=== PATIENT | male | born 1985 | race Caucasian/White ===

== ENCOUNTER 2017-03-06 12:14 | Inpatient (IN) | payer MEDICAID, OTHER ==
[~2017-03-06] VITALS: Ht 172.7 cm; Wt 61.7 kg
[2017-03-06 13:14] LABS: MEAN CORPUSCULAR HEMOGLOBIN 31.8 pg (27.0-33.0); MEAN CORPUSCULAR HGB CONC 35.6 g/dl (32.0-36.5); MEAN CORPUSCULAR VOLUME 89.5 fl (80.0-96.0); WHITE BLOOD COUNT 6.1 K/mm3 (4.0-10.0)
[2017-03-06 13:26] LABS: METHADONE URINE NEGATIVE (NEGATIVE)
[2017-03-06 13:38] LABS: ALBUMIN 4.4 GM/DL (3.2-5.2); ALBUMIN/GLOBULIN RATIO 1.16 (1.00-1.93); ALKALINE PHOSPHATASE 71 U/L (45-117); ALT/SGPT 28 U/L (12-78); ANION GAP 7 MEQ/L (8-16); AST/SGOT 20 U/L (15-37); BILIRUBIN,DIRECT 0.3 MG/DL (0.0-0.2); BILIRUBIN,TOTAL 0.9 MG/DL (0.2-1.0); BLOOD UREA NITROGEN 20 MG/DL (7-18); CALCIUM LEVEL 9.2 MG/DL (8.5-10.1); CARBON DIOXIDE LEVEL 27 MEQ/L (21-32); CHLORIDE LEVEL 105 MEQ/L (98-107); GLOMERULAR FILTRATION RATE > 60.0 (>60); GLUCOSE, FASTING 96 MG/DL (70-105); POTASSIUM SERUM 3.6 MEQ/L (3.5-5.1); SODIUM LEVEL 139 MEQ/L (136-145); TOTAL PROTEIN 8.2 GM/DL (6.4-8.2)
[2017-03-06] MEDS ORDERED: IBUPOTC PO (17:10)
[2017-03-06] MEDS ORDERED: MAGN500C PO (17:10)
[2017-03-06] MEDS ORDERED: ALLE180T33 PO (17:10)
[2017-03-06 17:48] VITALS: BP 131/95
[2017-03-06] MEDS ORDERED: hydrOXYzine 50 MG TAB PO PRN (19:15)
[2017-03-06] MEDS ORDERED: MAALOX 30 ML SUSP *UDC PO PRN (19:15)
[2017-03-06] MEDS ORDERED: MOM 30ML SUSPENSION UDC PO PRN (19:15)
[2017-03-06] MEDS ORDERED: LORazepam 2 MG TAB PO PRN (19:15)
[2017-03-06] MEDS: THIAMINE 100 MG TAB PO SCH (20:32)
[2017-03-06] MEDS: DIVALPROEX 250 MG TAB PO SCH (20:32)
[2017-03-06] MEDS: risperiDONE 1 MG TAB PO SCH (20:32)
[2017-03-06] MEDS: MULTIVITAMINS/MINERALS THERAP 1 TAB PO SCH (20:33)
[2017-03-06] MEDS: FOLIC ACID 1 MG TAB PO SCH (20:33)
[2017-03-06] MEDS: ACETAMINOPHEN TAB 650MG DOSE (2X325MG) PO PRN (21:54)
[2017-03-07] MEDS ORDERED: QUEtiapine FUMARATE 100 MG TAB PO ONE (01:15)
[2017-03-07 06:44] VITALS: BP 136/87
[2017-03-07 08:30] VITALS: BP 133/79
[2017-03-07] MEDS: risperiDONE 1 MG TAB PO SCH ×2 (08:32→20:21)
[2017-03-07] MEDS: THIAMINE 100 MG TAB PO SCH ×2 (08:32→20:21)
[2017-03-07] MEDS: DIVALPROEX 250 MG TAB PO SCH ×2 (08:33→20:21)
[2017-03-07] MEDS: FOLIC ACID 1 MG TAB PO SCH (08:33)
[2017-03-07] MEDS: MULTIVITAMINS/MINERALS THERAP 1 TAB PO SCH (08:33)
[2017-03-07] MEDS: MAGNESIUM OXIDE 400 MG TAB (MAG-OX) PO SCH (08:33)
[2017-03-07] MEDS ORDERED: FEXOFENADINE 60 MG TAB PO PRN (09:00)
--- NOTE | 2017-03-07 10:30 | HPEPDOC ---
Medical History and Physical Date of Admission Mar 06, 2017 at 16:50 History and Physical PCP: None ATTENDING: Dr. Lamine Soliz HPI: 31yoM admitted to [facility] for bipolar disorder, being medically examined today. No acute medical complaints today. Denies any fevers, chills, weakness, fatigue, OCHOA, CP, SOB, cough, palpitations, abdominal pain, N/V/D or changes in bowel or bladder habits. PMHx: Bipolar disorder depression anxiety Allergic rhinitis Substance use PSHX: Left ulnar nerve transposition SOCHX: Resides in: [facility] resident, from [place]. Marital Status: Single Kids: None Employment: Employed Tobacco use: Occasional ETOH: States drinking " a lot " since 08/05 Illicit Drugs: Marijuana daily IV Drug Use: Denies Tattoos done unprofessionally: Denies FAMHX: Mother: Alive, hypertension Father: , complications of MVA Siblings: One sister Alive, bipolar disorder, SI Children: None Unexpected deaths due to medical reasons: Paternal uncle suicide, depression. ROS: As noted in HPI, otherwise 11pt ROS of systems reviewed and unremarkable. PE: GEN: 31 yo M, appears stated age. Well-nourished, well developed. No acute distress. Alert and oriented x 3. Pleasant, interactive. HEENT: Normocephalic, atraumatic. Pupils are equal, round, and reactive to light. Extraocular movements are intact. No nystagmus appreciated. Sclera are nonicteric. Conjunctiva without injection. Nose midline. Nasal turbinates without bogginess. EACs both patent BL. TMs both visualized and rubin with good cone of light, no bulging or erythema. No facial asymmetry. Moist mucous membranes. Dentition fair. Pharynx pink and moist, no cobblestoning. Neck supple , trachea midline. No lymphadenopathy or thyromegaly appreciated. CHEST: Regular rate and rhythm, +S1, +S2 LUNGS: Clear to auscultation bilaterally. No wheezes, rales, or rhonchi. Breathing appears symmetric and easy. Patient is speaking in full sentences. No accessory muscle use. ABD: Round, soft, non-tender, non-distended. +Bowel sounds throughout. No rebound or guarding. No costovertebral angle tenderness. EXT: Pulses 2+ bilaterally dorsalis pedis and radial. No lower extremity edema appreciated. SKIN: Bylas, dry, warm. Capillary refill <2sec. No rashes. NEURO: Alert and oriented x 3. Cranial nerves III-XII are intact. No focal deficits appreciated. EKG: Pending. A&P: 31yoM admitted to [facility] for bipolar disorder 1. Psych. Plan per Psychiatry. Obtain baseline EKG to assure the safety of psychiatric medications as they can prolong the QT interval. 2. Nicotine dependence. Patch available. 3. Allergic rhinitis. Continue Lizbet 180 mg daily. 4. Follow up. No Primary Care Provider. Will attempt to establish PCP on discharge. 5. Substance use. Per psychiatry. Continue with MVI, Thiamine, and Folic Acid supplementation. 6. Magnesium supplementation. Patient takes magnesium oxide 500 mg daily. Check magnesium level. 7. Staff member Jeremy present throughout exam. Vital Signs Vital Signs Date Time Temp Pulse Resp B/P (MAP) Pulse Ox O2 Delivery O2 Flow Rate FiO2 03/07/17 08:30 79 133/79 03/07/17 06:44 97.7 18 03/06/17 17:48 99 Room Air Laboratory Data Labs 24H Laboratory Tests 2 03/06/17 12:54: Anion Gap 7L, Glomerular Filtration Rate > 60.0, Calcium Level 9.2, Aspartate Amino Transf (AST/SGOT) 20, Alanine Aminotransferase (ALT/SGPT) 28, Alkaline Phosphatase 71, Total Bilirubin 0.9, Direct Bilirubin 0.3H, Total Protein 8.2, Albumin 4.4, Albumin/Globulin Ratio 1.16, Thyroid Stimulating Hormone (TSH) 0.678, Salicylates Level < 1.7L, Urine Amphetamines Screen NEGATIVE, Urine Benzodiazepines Screen NEGATIVE, Urine Opiates Screen NEGATIVE, Urine Methadone Screen NEGATIVE, Acetaminophen Level < 2.0L, Urine Barbiturates Screen NEGATIVE , Urine Phencyclidine Screen NEGATIVE, Urine Cocaine Metabolite Screen NEGATIVE , Urine Cannabinoids Screen POSITIVEH, Ethyl Alcohol Level 0.004 CBC/BMP Laboratory Tests 03/06/17 12:54 Red Blood Count 5.21, Mean Corpuscular Volume 89.5, Mean Corpuscular Hemoglobin 31.8, Mean Corpuscular Hemoglobin Concent 35.6, Red Cell Distribution Width 12.0 Home Medications Scheduled Magnesium Oxide (Magnesium) 500 Mg Cap, 500 MG PO DAILY Scheduled PRN Fexofenadine Hydrochloride (Lizbet Allergy) 180 Mg Tab, 180 MG PO DAILY PRN for Allergies Ibuprofen (Ibuprofen) 200 Mg Tab, 200 MG PO Q6H PRN for PAIN Allergies Coded Allergies: Dust Mite Extract (Verified Allergy, Unknown, 03/06/17) Lelo Toney Mar 07, 2017 10:30
[2017-03-07 12:05] LABS: MAGNESIUM LEVEL 2.4 MG/DL (1.8-2.4)
--- NOTE | 2017-03-07 14:21 | MHHPE ---
DATE OF ADMISSION: 03/06/2017 CURRENT MEDICATIONS: - Depakote 250 mg twice a day - Risperdal 1 mg twice a day CHIEF COMPLAINT: Mood swings. HISTORY OF PRESENT ILLNESS: This is a 31-year-old single white male living with his mother. Patient has a longstanding history of bipolar disorder. He has manic episodes lasting for months at a time. He has been manic since July he states. He has longstanding depressive episodes lasting up to a year at a time. His last manic episode was triggered he thinks by witnessing the of his close friends father in an avalanche in [place] back in July. He has been manic every since and drinking alcohol heavily. The patient likes to drink whiskey. He does get blackouts but denies delirium tremens or seizures. He also smokes marijuana. The patient and his girlfriend just moved from [place]. They broke up on the way. He was arrested while in [place] and stayed overnight in a local [facility]. He was then released and continued on his way here to the [facility]. His girlfriend went to her hometown in [place]. The patient states that he has a high level of energy. His appetite is poor. He has lost 16 pounds over the past six months. His sleep patterns are erratic. He does get racing thoughts. No recent depressive symptoms, but he is afraid of developing a major depressive episode. The patient was seen in the ED yesterday and was admitted on the current psychotropics. He states he has been on this combination before in the past briefly by a Dr. Clayton in [place]. PAST PSYCHIATRIC HISTORY: The patient did see Dr. Clayton briefly 2-3 years ago. He reports that the Risperdal was well tolerated. He does not like to take medications that require blood tests; however, his sister is on lithium. Patient was given Klonopin in the past but had a bad reaction to that. He has never had a psychiatric hospitalization before, aside from a one day admission to a facility in [place] about 4 years ago when he was in a depressed state. MEDICAL HISTORY: Patient healthy. 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 SURGICAL HISTORY: Surgery on his left elbow from a skateboard accident. ALLERGIES: Negative. LEGAL ISSUES: None aside from the arrest in [place]. CHEMICAL DEPENDENCY: Positive for alcohol and cannabis. He has never been in a rehab treatment facility. SOCIAL HISTORY: Patient was born in [place]. When his father , he and the family moved to the [place] area where his mother has family. He graduated high school in [place]. He then got a college degree in [employer] in [place] and has lived there for the past 10-11 years. 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 His sister has bipolar disorder and is on lithium and Seroquel. FAMILY HISTORY: Strong family history of bipolar disorder on his fathers side. His uncle committed suicide. His grandmother was treated with ECT. There is a history of alcoholism on his mothers side. MENTAL STATUS EXAMINATION: Patient is alert and cooperative. Speech is quite rapid and pressured. He talks over me constantly. Speech is rambling, loose and tangential frequently. Patient appears manic. He is not depressed. He is not suicidal. He is not homicidal. Insight and judgment are fair. He denies psychotic symptoms. He is not paranoid. He denies auditory hallucinations or thought disorder. No signs of impulsivity or dangerousness. Memory functions appear intact. ASSESSMENT: Patient appears to have classical bipolar symptoms as well as alcohol and cannabis use disorder. DIAGNOSIS: Bipolar disorder, manic. Alcohol use disorder. Cannabis use disorder. PLAN: Continue Risperdal 1 mg twice a day, Depakote 250 mg twice a day, dose will be increased as tolerated. 9.39 confirmed. Staff to reach out to family.
[2017-03-07] MEDS: ACETAMINOPHEN TAB 650MG DOSE (2X325MG) PO PRN (14:42)
[2017-03-07 18:00] VITALS: BP 130/80
[2017-03-07 20:22] VITALS: BP 130/80
--- NOTE | 2017-03-07 20:44 | ECGEPIP ---
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 Somewhat abbreviated OH interval. Incomplete RBBB. Not definite outside normal limits for age. Electronically Signed On 03-07-2017 20:44:23 EDT by Edgardo Block
[2017-03-07] MEDS: traZODone 50 MG TAB PO PRN (21:37)
[2017-03-08 06:40] VITALS: BP 144/75
[2017-03-08 07:19] LABS: ANION GAP 8 MEQ/L (8-16); BLOOD UREA NITROGEN 16 MG/DL (7-18); CALCIUM LEVEL 9.4 MG/DL (8.5-10.1); CARBON DIOXIDE LEVEL 27 MEQ/L (21-32); CHLORIDE LEVEL 105 MEQ/L (98-107); CREATININE FOR GFR 1.05 MG/DL (0.70-1.30); GLOMERULAR FILTRATION RATE > 60.0 (>60); GLUCOSE, FASTING 81 MG/DL (70-105); MAGNESIUM LEVEL 2.3 MG/DL (1.8-2.4); POTASSIUM SERUM 4.4 MEQ/L (3.5-5.1); SODIUM LEVEL 140 MEQ/L (136-145)
[2017-03-08] MEDS: risperiDONE 1 MG TAB PO SCH ×2 (08:26→20:54)
[2017-03-08] MEDS: THIAMINE 100 MG TAB PO SCH ×2 (08:26→20:54)
[2017-03-08] MEDS: MAGNESIUM OXIDE 400 MG TAB (MAG-OX) PO SCH (08:26)
[2017-03-08] MEDS: FOLIC ACID 1 MG TAB PO SCH (08:26)
[2017-03-08] MEDS: MULTIVITAMINS/MINERALS THERAP 1 TAB PO SCH (08:26)
[2017-03-08] MEDS: DIVALPROEX 250 MG TAB PO SCH (08:26)
[2017-03-08 12:50] VITALS: BP 144/75
[2017-03-08] MEDS: ACETAMINOPHEN TAB 650MG DOSE (2X325MG) PO PRN (13:23)
--- NOTE | 2017-03-08 14:00 | IPN ---
DATE: 03/08/2017 Vital signs: Temperature 98.3, pulse 61, respirations 18, blood pressure 144/75. CURRENT MEDICATION: - Depakote 250 mg twice daily - Risperdal 1 mg twice daily - Seroquel 50 mg at bedtime as needed - trazodone 50 mg at bedtime as needed HISTORY OF PRESENT ILLNESS: Patient states his appetite is good. He slept well last night. The trazodone was helpful. Manic symptoms are better. Racing thoughts less prominent. He is less anxious. No craving for the alcohol. No current depression. We discussed switching his Depakote to bedtime dosage to minimize side effects. Patient encouraged to be involved with the hospital milieu. MENTAL STATUS EXAMINATION: Patient is alert, oriented and cooperative. Speech is still rapid and pressured with signs of hypomania. Speech is still rambling and pressured. He is not depressed. He is not suicidal. Not homicidal. Denies hearing voices. No thought disorder noted. Memory functions appear fine. No signs of impulsivity. DIAGNOSIS: Bipolar disorder, manic. Alcohol use disorder. Cannabis use disorder. PLAN: No change in Risperdal. Depakote switched to 500 mg at bedtime and will be increased as tolerated. Involved in hospital milieu.
[2017-03-08 17:08] VITALS: BP 144/75
[2017-03-08 18:20] VITALS: BP 128/71
[2017-03-08] MEDS: DIVALPROEX 500 MG TAB PO SCH (20:54)
[2017-03-08] MEDS ORDERED: QUEtiapine FUMARATE 50 MG TAB PO PRN (21:00)
[2017-03-08] MEDS: traZODone 50 MG TAB PO PRN (22:52)
[2017-03-09 07:12] VITALS: BP 141/71
[2017-03-09] MEDS: FOLIC ACID 1 MG TAB PO SCH (08:46)
[2017-03-09] MEDS: THIAMINE 100 MG TAB PO SCH (08:46)
[2017-03-09] MEDS: MAGNESIUM OXIDE 400 MG TAB (MAG-OX) PO SCH (08:46)
[2017-03-09] MEDS: MULTIVITAMINS/MINERALS THERAP 1 TAB PO SCH (08:46)
[2017-03-09] MEDS: risperiDONE 1 MG TAB PO SCH ×2 (08:46→21:14)
[2017-03-09 11:00] VITALS: BP 141/71
--- NOTE | 2017-03-09 15:27 | IPN ---
DATE: 03/09/2017 VITAL SIGNS: Temperature 98.0, pulse 93, respirations 16, blood pressure 141/71. CURRENT MEDICATIONS: - Depakote 500 mg at bedtime as needed - Risperdal 1 mg twice a day - Seroquel 50 mg at bedtime as needed HISTORY OF PRESENT ILLNESS: The patient states his appetite is good. He is sleeping well at night. He did have a cough last night, which woke him up at 4:30 a.m. He did go back to sleep. He denies recent mood swings. He denies feeling depressed. He no longer has racing thoughts. The patient played his guitar for the first time last night. He enjoyed it. His mother has been visiting and brought him slippers. He asked for permission to wear his slippers. The patient plans on staying her with his mother upon discharge and has a job lined up back in [place] at the end of the summer. He is looking to the future. MENTAL STATUS EXAM: Mood and affect appear good today. Racing thoughts less prominent. Hypomania appears to be resolving. Speech more appropriate and less pressured. He is not depressed. Not suicidal. Not homicidal. Not hearing voices. DIAGNOSES: Bipolar disorder with recent nigel. Alcohol use disuse disorder. Cannabis use disorder. PLAN: Obtain Depakote level.
[2017-03-09 18:00] VITALS: BP 147/85
[2017-03-09 19:26] VITALS: BP 141/71
[2017-03-09] MEDS: DIVALPROEX 500 MG TAB PO SCH (21:14)
[2017-03-10 06:25] VITALS: BP 146/87
[2017-03-10] MEDS: FOLIC ACID 1 MG TAB PO SCH (08:12)
[2017-03-10] MEDS: MAGNESIUM OXIDE 400 MG TAB (MAG-OX) PO SCH (08:12)
[2017-03-10] MEDS: MULTIVITAMINS/MINERALS THERAP 1 TAB PO SCH (08:12)
[2017-03-10] MEDS: risperiDONE 1 MG TAB PO SCH ×2 (08:12→21:02)
[2017-03-10 12:00] VITALS: BP 129/87
[2017-03-10 18:00] VITALS: BP 116/69
[2017-03-10] MEDS: DIVALPROEX 500 MG TAB PO SCH (21:03)
[2017-03-10] MEDS: traZODone 50 MG TAB PO PRN (22:29)
[2017-03-10 22:30] VITALS: BP 122/70
[2017-03-11] MEDS: FOLIC ACID 1 MG TAB PO SCH (08:12)
[2017-03-11] MEDS: MAGNESIUM OXIDE 400 MG TAB (MAG-OX) PO SCH (08:12)
[2017-03-11] MEDS: risperiDONE 1 MG TAB PO SCH ×2 (08:13→20:55)
[2017-03-11] MEDS: MULTIVITAMINS/MINERALS THERAP 1 TAB PO SCH (08:13)
--- NOTE | 2017-03-11 09:41 | IPN ---
DATE: 03/10/2017 VITAL SIGNS: Temperature 98.2, pulse 80, respirations 20, blood pressure 146/87. CURRENT MEDICATIONS: - Depakote 500 mg at bedtime - trazodone 50 mg at bedtime as needed - Risperdal 1 mg twice a day LABORATORY DATA: Valproic acid level 52.8, therapeutic. HISTORY OF PRESENT ILLNESS: Patient reports his mood is more stable. No major mood swings. He denies racing thoughts. He is sleeping well at night without needing the trazodone. His Depakote level was therapeutic. The patient states he has goals to return quickly to [place] upon discharge, however staff contacted his mother who states that he has no finances to make such a return and that she is not willing to financially support him. Staff will look into getting [facility] Medicaid. MENTAL STATUS EXAMINATION: Mood and affect do appear good today. No current signs of racing thoughts. Hypomania is minimal. Judgment is improving. Insight appears reasonably good. He is not psychotic. Grooming and hygiene is marginal. DIAGNOSIS: Bipolar disorder with recent ngiel. Alcohol use disorder. Cannabis use disorder. PLAN: Monitor psychotropics over the weekend. Continue milieu therapy. Work on discharge planning.
[2017-03-11 18:00] VITALS: BP 129/65
[2017-03-11] MEDS: DIVALPROEX 500 MG TAB PO SCH (20:55)
[2017-03-11] MEDS: traZODone 50 MG TAB PO PRN (22:46)
[2017-03-12 06:34] VITALS: BP 124/62
[2017-03-12] MEDS: MULTIVITAMINS/MINERALS THERAP 1 TAB PO SCH (08:03)
[2017-03-12] MEDS: MAGNESIUM OXIDE 400 MG TAB (MAG-OX) PO SCH (08:03)
[2017-03-12] MEDS: FOLIC ACID 1 MG TAB PO SCH (08:03)
[2017-03-12] MEDS: risperiDONE 1 MG TAB PO SCH ×2 (08:03→21:32)
[2017-03-12 18:00] VITALS: BP 141/74
[2017-03-12] MEDS: DIVALPROEX 500 MG TAB PO SCH (21:32)
[2017-03-12] MEDS: traZODone 50 MG TAB PO PRN (23:02)
[2017-03-13 07:18] VITALS: BP 146/72
[2017-03-13] MEDS: MULTIVITAMINS/MINERALS THERAP 1 TAB PO SCH (08:29)
[2017-03-13] MEDS: FOLIC ACID 1 MG TAB PO SCH (08:29)
[2017-03-13] MEDS: MAGNESIUM OXIDE 400 MG TAB (MAG-OX) PO SCH (08:29)
[2017-03-13] MEDS: ACETAMINOPHEN TAB 650MG DOSE (2X325MG) PO PRN (10:08)
[2017-03-13 18:18] VITALS: BP 136/68
[2017-03-13] MEDS: DIVALPROEX 500 MG TAB PO SCH (20:35)
[2017-03-13] MEDS ORDERED: risperiDONE 2 MG TAB PO SCH (21:00)
--- NOTE | 2017-03-13 22:00 | IPN ---
DATE: 03/13/2017 VITAL SIGNS: Temperature 98.5, pulse 83, respirations 20, blood pressure 146/72. CURRENT MEDICATIONS: - Risperdal 1 mg twice a day - Depakote 500 mg nightly - trazodone 50 mg nightly as needed HISTORY OF PRESENT ILLNESS: Patient reports he had a good weekend. He tolerated the medicines well. His mood has been stable, no manic episodes, no problems with racing thoughts. Friends and family visited, they are supportive. No major stressors. He did speak to his ex-girlfriend on the phone, this was somewhat anxiety provoking but he coped with the situation well. We discussed switching the Risperdal to a bedtime dosage as well, he feels comfortable with this. We discussed likely discharge tomorrow. MENTAL STATUS EXAMINATION: Mood is good. He is not depressed. Anxiety is minimal. No signs of nigel. Insight appears good. Judgment appears fine. No signs of psychosis. Grooming and hygiene remain marginal. DIAGNOSES: 1. Bipolar disorder, most recent episode nigel. 2. Alcohol use disorder. 3. Cannabis use disorder. PLAN: Risperdal switched to 2 mg nightly. Staff to work on discharge planning with outpatient followup.
[2017-03-13] MEDS: traZODone 50 MG TAB PO PRN (22:41)
[2017-03-14 06:37] VITALS: BP 150/67
[2017-03-14] MEDS: FOLIC ACID 1 MG TAB PO SCH (08:22)
[2017-03-14] MEDS: MAGNESIUM OXIDE 400 MG TAB (MAG-OX) PO SCH (08:22)
[2017-03-14] MEDS: MULTIVITAMINS/MINERALS THERAP 1 TAB PO SCH (08:22)
[2017-03-14] MEDS ORDERED: RISP2TAB3 PO (10:11)
[2017-03-14] MEDS ORDERED: DEPA1TAB3 PO (10:11)
--- NOTE | 2017-03-15 06:56 | MHDS ---
DATE OF ADMISSION: 03/06/2017 DATE OF DISCHARGE: 03/14/2017 VITAL SIGNS: Temperature 97.7, pulse 49, respirations 20, blood pressure 150/67. LABORATORY DATA: CBC and differential within normal limits. Chemistry survey within normal limits. Toxicology negative except for cannabinoids. Valproic acid level therapeutic at 52.8. DISCHARGE MEDICATIONS: - Depakote 500 mg one at bedtime - Risperdal 2 mg one by mouth at bedtime DISCHARGE DIAGNOSES: 1. Bipolar disorder, manic. 2. Alcohol use disorder. 3. Cannabis use disorder. CHIEF COMPLAINT: Mood swings. HISTORY OF PRESENT ILLNESS: This is a 31-year-old single white male from [place] with recent manic symptoms. These date back to July 2016. He thinks they were triggered by witnessing the of his close friend's father in an avalanche while skiing in [place] back in July. The patient started drinking heavily at the time. He likes to drink Whiskey. The patient does get blackouts. He smokes cannabis as well. He has lost 16 pounds over the last six months. Sleep patterns have been erratic. He has racing thoughts. No recent problems with depression. He and his girlfriend recently decided to leave [place], driving back east. They broke up while on the way. The patient came here to the [facility] to stay with his mother at her [facility]. His mother is his major support locally. PROGRESS ON THE UNIT: The patient was placed on Depakote 250 mg twice a day and Risperdal 1 mg twice a day. He tolerated the medication well. He was medication compliant. He was social on the unit. He attended all groups and therapy programs. The patient's mood stabilized quickly. He showed no signs of depression. Manic symptoms improved rapidly. His medications were switched to bedtime dosage which was tolerated well. Family visited and confirmed his progress. The patient appeared to reach maximum hospital benefit and was agreeable to outpatient mental health followup, and to live with his mother. Eventually he hopes to return to [place]. MENTAL STATUS EXAMINATION: At time of discharge, mood and affect were good. He was not depressed, not manic. No signs of racing thoughts, not hearing voices. No paranoia or thought disorder. Insight and judgment appeared good. Grooming and hygiene somewhat marginal. No signs of dangerousness. No signs of impulsivity. No signs of cognitive deficits. ASSESSMENT: Rapid response to medications and milieu. PLAN: Discharge to care of his family. Followup with local mental health provider.
== END 2017-03-14 12:15 | disposition home or self-care (01) | DRG 753 ==
LOC: M ED 12:14 → M ED INP 16:50 → M PSY 17:40
PROVIDERS: ADMIT Psychiatry & Neurology Psychiatry; ATTEND Psychiatry & Neurology Psychiatry
DX: F31.9 Bipolar disorder, unspecified (principal); F10.10 Alcohol abuse, uncomplicated; F12.90 Cannabis use, unspecified, uncomplicated; F17.200 Nicotine dependence, unspecified, uncomplicated; J30.9 Allergic rhinitis, unspecified